=== PATIENT | male | born 1945 | race Asian ===

== ENCOUNTER 2016-09-09 11:27 | Emergency (ER) | payer MEDICARE ==
[~2016-09-09] VITALS: Ht 165.1 cm; Wt 57.2 kg
[~2016-09-09 11:27] MED LIST: ASP81EC PO; Atorvastatin Calcium PO; LIS5T PO; MET25T PO
[2016-09-09 12:18] LABS: Basophils # (auto) 0 uL; Basophils % (auto) 0.4 % (0.0-2.0); Eosinophils # (auto) 0.1 uL; Eosinophils % (auto) 1.6 % (0.0-7.0); Hematocrit 44.3 % (41.0-53.0); Hemoglobin 15.1 g/dL (13.5-17.5); Lymphocytes # (auto) 1.4 uL; Lymphocytes % (auto) 22.8 % (10.0-50.0); Mean Corpuscular Hemoglobin 31.4 pg (28.0-32.0); Mean Corpuscular Volume 92.2 fL (80.0-100.0); Mean Platelet Volume 8.4 fL (7.4-10.4); Monocytes # (auto) 0.6 uL; Monocytes % (auto) 9.9 % (0.0-12.0); Neutrophils % (auto) 65.3 % (37.0-80.0); Platelet Count (auto) 312 10^3/uL (140-450); Red Cell Distribution Width 13.8 % (11.6-16.0); White Blood Cell 6.2 10^3/uL (4.4-10.8)
[2016-09-09 12:50] LABS: Albumin 3.4 g/dL (3.4-5.0); BUN/Creatinine Ratio 19.6; Bilirubin, Total 0.6 mg/dL (0.2-1.0); Calcium 8.8 mg/dL (8.5-10.1); Magnesium 2.7 mg/dL (1.6-2.6); Potassium 5.1 mmol/L (3.5-5.1); Total Protein 7.3 g/dL (6.4-8.2)
[2016-09-09 14:17] VITALS: BP 136/95
[2016-09-09] MEDS ORDERED: HYDROmorphone HCL 2 MG/ML VL IM ONE (14:30)
[2016-09-09] MEDS ORDERED: ONDANSETRON HCL 4 MG/2 ML VIAL IM ONE (14:30)
[2016-09-09] MEDS ORDERED: HYDROcodone-ACET 10/325MG TAB PO ONE (15:00)
[2016-09-09] MEDS ORDERED: ONDANSETRON ODT 4 MG TAB PO ONE (15:00)
[2016-09-13] MEDS ORDERED: HYDR-531 PO (02:03)
== END 2016-09-09 15:11 | disposition home or self-care (01) ==
LOC: ER 11:30
DX: G89.4 Chronic pain syndrome (principal); R07.9 Chest pain, unspecified; I10 Essential (primary) hypertension; Z79.82 Long term (current) use of aspirin; Z79.899 Other long term (current) drug therapy; Z86.73 Personal history of transient ischemic attack (TIA), and cerebral infarction without residual deficits; Z85.820 Personal history of malignant melanoma of skin
CPT/HCPCS: 36415; 71020; 80053; 83735; 84484; 85025; 93005; 94761; 99285; Q0162